=== PATIENT | female | born 1970 | race Two or more races ===

== ENCOUNTER 2022-10-27 00:28 | Emergency (ER) | payer OTHER ==
[2022-10-27 00:39] VITALS: BP 95/61; PULSE 88; RESP 20; TEMP 97.9; BMI 33.3
[2022-10-27] MEDS ORDERED: KETOROLAC TROMETHAMINE 15 MG/ML VIAL IM ONE (01:29)
[2022-10-27] MEDS ORDERED: KETOROLAC TROMETHAMINE 15 MG/ML VIAL ONE (01:31)
== END 2022-10-27 01:42 | disposition home or self-care (01) ==
LOC: JER 00:28
PROC: 3E0233Z Introduction of Anti-inflammatory into Muscle, Percutaneous Approach (ICD-10-PCS; principal; 2022-10-27)
DX: M54.50 Low back pain, unspecified (principal); G89.29 Other chronic pain
CPT/HCPCS: 99284-25